=== PATIENT | male | born 1970 ===

== ENCOUNTER 2018-11-23 10:12 | Inpatient (IN) | payer OTHER ==
[~2018-11-23] VITALS: Ht 175.3 cm; Wt 177.7 kg
[2018-11-23] MEDS ORDERED: NPH,100V SC ×2 (10:41)
[2018-11-23] MEDS ORDERED: AMLO10TA8 PO (10:41)
[2018-11-23] MEDS ORDERED: INSU100C SQ-INSULIN (10:41)
[2018-11-23] MEDS ORDERED: LISI-167 PO (10:41)
[2018-11-23] MEDS ORDERED: CETI10TA18 PO (10:41)
[2018-11-23] MEDS ORDERED: GLIP10TA13 PO (10:41)
[2018-11-23] MEDS ORDERED: METF500T17 PO (10:41)
[2018-11-23] MEDS ORDERED: INDO75CA3 PO (10:41)
--- NOTE | 2018-11-23 10:46 | NUR ---
PT TO ED FOR SOB WITH EXERTION X FEW WEEKS AND LEFT POSTERIOR SHOULDER PAIN RAD TO LEFT ARM SINCE THIS AM. NO RELIEVING OR AGGRAVATING FACTORS. CONNECTED TO MONITORS. HTN 181/89M ALL OTHER VSS ON RA. AWAITING EDMD ASSESSMENT.
[2018-11-23] MEDS ORDERED: SODIUM CHLORIDE FLUSH 10ML SYR IVF ONE (11:00)
[2018-11-23] MEDS ORDERED: ASPIRIN 81 MG TABLET CHEW PO ONE (11:00)
[2018-11-23] MEDS ORDERED: NITROGLYCERIN SINGLE TAB 0.4 MG SL PRN (11:00)
[2018-11-23] MEDS ORDERED: ASPIRIN 81 MG TABLET CHEW ONE (11:03)
--- NOTE | 2018-11-23 11:32 | NUR ---
pt resting in room with family at bedside. vss. no needs at this time. iv established. labs drawn and sent. awaiting results.
[2018-11-23 11:50] LABS: BASOPHILS # (AUTO) 0.03 x10^3/uL (0-0.1); BASOPHILS % (AUTO) 0 % (0-1); EOSINOPHILS # (AUTO) 0.31 x10^3/uL (0-0.4); EOSINOPHILS % (AUTO) 3 % (1-7); LYMPHOCYTES # (AUTO) 1.82 x10^3/uL (1-3.4); LYMPHOCYTES % (AUTO) 20 % (22-44); MD NO; MEAN CORPUSCULAR HEMOGLOBIN 28.6 pg (27.5-34.5); MEAN CORPUSCULAR HGB CONC 33.3 g/dL (33.2-36.2); MEAN CORPUSCULAR VOLUME 85.9 fL (81-97); MEAN PLATELET VOLUME 6.9 fL (7.4-10.4); MONOCYTES # (AUTO) 0.69 x10^3/uL (0.2-0.8); MONOCYTES % (AUTO) 8 % (2-9); NEUTROPHILS % (AUTO) 69 % (42-75); PLATELET COUNT 506 x10^3/uL (130-400); RED BLOOD COUNT 4.08 x10^6/uL (4.38-5.82); RED CELL DISTRIBUTION WIDTH 14.8 % (9.4-14.8)
[2018-11-23 11:58] LABS: ALBUMIN 2.9 g/dL (3.4-5.0); ANION GAP 6 mmol/L (5-15); CALCIUM 8.9 mg/dL (8.5-10.1); CHLORIDE 105 mmol/L (98-107); CREATININE 2.01 mg/dL (0.7-1.3)
[2018-11-23 12:01] LABS: TROPONIN I < 0.015 ng/mL (0.000-0.045)
[2018-11-23] MEDS ORDERED: NITROGLYCERIN SINGLE TAB 0.4 MG SL ONE (12:07)
--- NOTE | 2018-11-23 13:20 | NUR ---
RN DAREN IS ASSISTING THE PRIMARY CARE RN WITH PT. CARE. PT. REMAINS MONITORED. VITALS TAKEN. PT. IS RESTING WITH THE HOB ELEVATED GREATER THAN 30 DEGREES. NO CONCERNS AT THIS TIME.
--- NOTE | 2018-11-23 13:47 | NUR ---
pt to vq scan at this time.
--- NOTE | 2018-11-23 14:25 | NUR ---
PT BACK FORM VQ SCAN. VSS. EDMD TO BS TO UPDATE ON POC. PLAN TO ADMIT.
[2018-11-23] MEDS ORDERED: METOPROLOL TARTRATE 50 MG TABLET PO ONE (15:00)
[2018-11-23] MEDS ORDERED: METOPROLOL TARTRATE 50 MG TABLET ONE (15:02)
[2018-11-23] MEDS ORDERED: DEXTROSE 50%, 50ML SYRINGE IVPush PRN (15:30)
[2018-11-23] MEDS ORDERED: LABETALOL 5MG/ML, 20ML IVPush PRN (15:30)
[2018-11-23] MEDS ORDERED: DEXTROSE 4 GM TAB.CHEW PO PRN (15:30)
[2018-11-23] MEDS ORDERED: ONDANSETRON 2MG/ML, 2ML IVPush PRN (15:30)
[2018-11-23] MEDS ORDERED: NITROGLYCERIN 0.4 MG/SPRAY SL PRN (15:30)
[2018-11-23] MEDS ORDERED: TRAZODONE 50MG TABLET PO PRN (15:30)
[2018-11-23] MEDS ORDERED: NITROGLYCERIN 0.4 MG BOTTLE (25 TABS) SL PRN (15:30)
[2018-11-23] MEDS ORDERED: GLUCAGON 1 MG IM PRN (15:30)
[2018-11-23] MEDS ORDERED: MORPHINE SULFATE 4 MG/ML, 1ML IVPush PRN (15:30)
[2018-11-23] MEDS ORDERED: ACETAMINOPHEN 325 MG TABLET PO PRN (15:30)
[2018-11-23 15:35] VITALS: BP 174/98
[2018-11-23 16:48] LABS: MICROSCOPIC AUTO
[2018-11-23 16:49] LABS: CULTURE INDICATED? NO
[2018-11-23 17:07] VITALS: BP 142/83
[2018-11-23] MEDS: HEPARIN 5,000 UNITS/ML, 1ML SQ SCH (17:08)
[2018-11-23] MEDS: INSULIN LISPRO 100 UNITS/ML, PEN SQ-INSULIN SCH ×2 (17:37→20:38)
[2018-11-23 18:37] LABS: TROPONIN I < 0.015 ng/mL (0.000-0.045)
[2018-11-23 19:03] VITALS: BP_SYST 155; BP_SYST 164; BP_DIAS 94; BP_DIAS 97
[2018-11-23] MEDS: SODIUM CHLORIDE FLUSH 10ML SYR IVF SCH (20:38)
[2018-11-23] MEDS: INSULIN NPH HUMAN 100 UNIT/ML, 3ML VIAL SQ-INSULIN SCH (21:00)
[2018-11-23 22:30] VITALS: BP 171/103
[2018-11-23] MEDS: hydrALAzine 20 MG/ML, 1ML IVPush PRN (22:35)
[2018-11-23 23:10] VITALS: BP 160/100
[2018-11-23 23:30] VITALS: BP 153/93
[2018-11-24 00:05] LABS: TROPONIN I < 0.015 ng/mL (0.000-0.045)
[2018-11-24 00:19] VITALS: BP 162/74
[2018-11-24 06:27] LABS: ANION GAP 5 mmol/L (5-15); CALCIUM 8.8 mg/dL (8.5-10.1); CHLORIDE 106 mmol/L (98-107); CREATININE 2.36 mg/dL (0.7-1.3)
[2018-11-24 06:31] LABS: BASOPHILS # (AUTO) 0.03 x10^3/uL (0-0.1); BASOPHILS % (AUTO) 0 % (0-1); EOSINOPHILS # (AUTO) 0.25 x10^3/uL (0-0.4); EOSINOPHILS % (AUTO) 2 % (1-7); LYMPHOCYTES # (AUTO) 2.02 x10^3/uL (1-3.4); LYMPHOCYTES % (AUTO) 17 % (22-44); MD NO; MEAN CORPUSCULAR HEMOGLOBIN 27.9 pg (27.5-34.5); MEAN CORPUSCULAR HGB CONC 32.4 g/dL (33.2-36.2); MEAN CORPUSCULAR VOLUME 86.3 fL (81-97); MEAN PLATELET VOLUME 7.1 fL (7.4-10.4); MONOCYTES # (AUTO) 0.79 x10^3/uL (0.2-0.8); MONOCYTES % (AUTO) 7 % (2-9); NEUTROPHILS # (AUTO) 8.61 x10^3/uL (1.8-6.8); NEUTROPHILS % (AUTO) 74 % (42-75); PLATELET COUNT 517 x10^3/uL (130-400); RED BLOOD COUNT 4.02 x10^6/uL (4.38-5.82); RED CELL DISTRIBUTION WIDTH 14.6 % (9.4-14.8)
[2018-11-24 06:38] LABS: % IRON SATURATION 13 % (20-55); IRON LEVEL 35 mcg/dL (65-175); TOTAL IRON BINDING CAPACITY 262 mcg/dL (250-450)
[2018-11-24 06:48] LABS: HEMOGLOBIN A1C 8.8 % (4.2-6.3)
[2018-11-24] MEDS: INSULIN LISPRO 100 UNITS/ML, PEN SQ-INSULIN SCH ×4 (07:00→20:37)
[2018-11-24 07:01] LABS: TROPONIN I < 0.015 ng/mL (0.000-0.045)
[2018-11-24 07:34] VITALS: BP 174/102
[2018-11-24] MEDS: CETIRIZINE 10 MG TABLET PO SCH (07:47)
[2018-11-24] MEDS: HEPARIN 5,000 UNITS/ML, 1ML SQ SCH ×3 (07:48→15:44)
[2018-11-24] MEDS: AMLODIPINE 10 MG TAB PO SCH (07:48)
[2018-11-24] MEDS: SODIUM CHLORIDE FLUSH 10ML SYR IVF SCH ×2 (07:49→20:32)
[2018-11-24] MEDS: INSULIN NPH HUMAN 100 UNIT/ML, 3ML VIAL SQ-INSULIN SCH ×2 (09:00→20:39)
[2018-11-24] MEDS ORDERED: AMLODIPINE 5 MG TABLET PO SCH (10:00)
[2018-11-24] MEDS ORDERED: REGADENOSON 0.4 MG/5 ML SYRINGE ONE (10:49)
[2018-11-24 13:20] VITALS: BP 193/117
[2018-11-24] MEDS: hydrALAzine 20 MG/ML, 1ML IVPush PRN (13:31)
[2018-11-24 14:00] VITALS: BP 150/82
[2018-11-24] MEDS ORDERED: ALLOPURINOL 100 MG TABLET PO SCH (15:30)
[2018-11-24] MEDS: ISOSORBIDE DINITRATE 10 MG TABLET PO SCH ×2 (15:44→20:33)
[2018-11-24] MEDS: GABAPENTIN 100 MG CAPSULE PO SCH ×2 (15:44→20:33)
[2018-11-24] MEDS: CARVEDILOL 6.25 MG TABLET PO SCH (19:04)
[2018-11-24 20:22] VITALS: BP 111/72
[2018-11-25] MEDS: HEPARIN 5,000 UNITS/ML, 1ML SQ SCH ×3 (00:22→20:36)
[2018-11-25 02:12] VITALS: BP 128/75
[2018-11-25 04:54] LABS: BASOPHILS # (AUTO) 0.02 x10^3/uL (0-0.1); BASOPHILS % (AUTO) 0 % (0-1); EOSINOPHILS # (AUTO) 0.24 x10^3/uL (0-0.4); EOSINOPHILS % (AUTO) 2 % (1-7); LYMPHOCYTES # (AUTO) 2.24 x10^3/uL (1-3.4); LYMPHOCYTES % (AUTO) 20 % (22-44); MD NO; MEAN CORPUSCULAR HEMOGLOBIN 27.7 pg (27.5-34.5); MEAN CORPUSCULAR HGB CONC 32.1 g/dL (33.2-36.2); MEAN CORPUSCULAR VOLUME 86.2 fL (81-97); MONOCYTES # (AUTO) 0.88 x10^3/uL (0.2-0.8); MONOCYTES % (AUTO) 8 % (2-9); NEUTROPHILS % (AUTO) 70 % (42-75); PLATELET COUNT 451 x10^3/uL (130-400); RED BLOOD COUNT 3.78 x10^6/uL (4.38-5.82); RED CELL DISTRIBUTION WIDTH 14.7 % (9.4-14.8)
[2018-11-25 05:06] LABS: ANION GAP 7 mmol/L (5-15); CALCIUM 8.5 mg/dL (8.5-10.1); CHLORIDE 105 mmol/L (98-107); CREATININE 2.73 mg/dL (0.7-1.3)
[2018-11-25] MEDS: CARVEDILOL 6.25 MG TABLET PO SCH ×2 (05:25→17:31)
[2018-11-25] MEDS: GABAPENTIN 100 MG CAPSULE PO SCH ×4 (05:25→20:34)
[2018-11-25] MEDS: INSULIN LISPRO 100 UNITS/ML, PEN SQ-INSULIN SCH ×4 (07:00→20:35)
[2018-11-25] MEDS ORDERED: prednisOLONE 15 MG/5 ML ORAL SOLN PO SCH (08:00)
[2018-11-25] MEDS: CYCLOBENZAPRINE 10 MG TABLET PO PRN ×2 (08:36→17:22)
[2018-11-25] MEDS ORDERED: ALLOPURINOL 100 MG TABLET PO SCH (09:00)
[2018-11-25 09:22] VITALS: BP 152/83
[2018-11-25] MEDS: ISOSORBIDE DINITRATE 10 MG TABLET PO SCH ×3 (10:58→20:34)
[2018-11-25] MEDS: AMLODIPINE 10 MG TAB PO SCH (10:58)
[2018-11-25] MEDS: SODIUM CHLORIDE FLUSH 10ML SYR IVF SCH ×2 (10:59→20:37)
[2018-11-25] MEDS: CETIRIZINE 10 MG TABLET PO SCH (11:20)
[2018-11-25] MEDS: INSULIN NPH HUMAN 100 UNIT/ML, 3ML VIAL SQ-INSULIN SCH ×2 (11:21→20:36)
[2018-11-25 17:19] VITALS: BP 158/88
[2018-11-25] MEDS ORDERED: INSULIN GLARGINE 100 UNITS/ML, PEN SQ-INSULIN SCH (21:00)
[2018-11-25 21:22] VITALS: BP 142/72
[2018-11-26 03:42] VITALS: BP 133/75
[2018-11-26] MEDS: CARVEDILOL 6.25 MG TABLET PO SCH ×2 (05:06→18:28)
[2018-11-26] MEDS: GABAPENTIN 100 MG CAPSULE PO SCH ×4 (05:06→20:59)
[2018-11-26] MEDS: HEPARIN 5,000 UNITS/ML, 1ML SQ SCH ×3 (05:06→20:58)
[2018-11-26 05:23] LABS: BASOPHILS % (AUTO) 1 % (0-1); EOSINOPHILS # (AUTO) 0.01 x10^3/uL (0-0.4); EOSINOPHILS % (AUTO) 0 % (1-7); LYMPHOCYTES # (AUTO) 1.99 x10^3/uL (1-3.4); LYMPHOCYTES % (AUTO) 13 % (22-44); MD NO; MEAN CORPUSCULAR HEMOGLOBIN 28.5 pg (27.5-34.5); MEAN CORPUSCULAR HGB CONC 33.2 g/dL (33.2-36.2); MEAN PLATELET VOLUME 6.8 fL (7.4-10.4); MONOCYTES # (AUTO) 1.32 x10^3/uL (0.2-0.8); MONOCYTES % (AUTO) 9 % (2-9); NEUTROPHILS # (AUTO) 12.02 x10^3/uL (1.8-6.8); NEUTROPHILS % (AUTO) 78 % (42-75); PLATELET COUNT 469 x10^3/uL (130-400); RED BLOOD COUNT 3.73 x10^6/uL (4.38-5.82); RED CELL DISTRIBUTION WIDTH 14.8 % (9.4-14.8)
[2018-11-26 05:31] LABS: CHLORIDE 104 mmol/L (98-107)
[2018-11-26 05:53] LABS: ALANINE AMINOTRANSFERASE 16 U/L (12-78); ALBUMIN 2.6 g/dL (3.4-5.0); ALKALINE PHOSPHATASE 67 U/L (45-117); ANION GAP 8 mmol/L (5-15); BILIRUBIN,TOTAL 0.2 mg/dL (0.2-1.0); CALCIUM 8.7 mg/dL (8.5-10.1); CREATININE 3.49 mg/dL (0.7-1.3)
[2018-11-26 07:10] VITALS: BP 146/82
[2018-11-26] MEDS: INSULIN NPH HUMAN 100 UNIT/ML, 3ML VIAL SQ-INSULIN SCH ×2 (08:21→21:01)
[2018-11-26] MEDS: ISOSORBIDE DINITRATE 10 MG TABLET PO SCH ×3 (08:22→20:59)
[2018-11-26] MEDS: AMLODIPINE 10 MG TAB PO SCH (08:22)
[2018-11-26] MEDS: CETIRIZINE 10 MG TABLET PO SCH (08:22)
[2018-11-26] MEDS: INSULIN LISPRO 100 UNITS/ML, PEN SQ-INSULIN SCH ×4 (08:23→21:00)
[2018-11-26] MEDS: SODIUM CHLORIDE 0.9% 1,000 ML IV SCH ×2 (08:23→17:06)
[2018-11-26] MEDS: SODIUM CHLORIDE FLUSH 10ML SYR IVF SCH ×2 (08:23→20:58)
[2018-11-26 13:45] VITALS: BP 131/80
[2018-11-26 18:30] VITALS: BP 132/86
[2018-11-26] MEDS ORDERED: INSULIN GLARGINE 100 UNITS/ML, PEN SQ-INSULIN SCH (21:00)
[2018-11-27 01:25] VITALS: BP 134/82
[2018-11-27] MEDS: SODIUM CHLORIDE 0.9% 1,000 ML IV SCH (03:57)
[2018-11-27 05:14] LABS: BASOPHILS # (AUTO) 0.07 x10^3/uL (0-0.1); BASOPHILS % (AUTO) 1 % (0-1); EOSINOPHILS # (AUTO) 0.04 x10^3/uL (0-0.4); EOSINOPHILS % (AUTO) 0 % (1-7); LYMPHOCYTES % (AUTO) 19 % (22-44); MD NO; MEAN CORPUSCULAR HEMOGLOBIN 28.2 pg (27.5-34.5); MEAN CORPUSCULAR HGB CONC 32.4 g/dL (33.2-36.2); MEAN PLATELET VOLUME 7.5 fL (7.4-10.4); MONOCYTES # (AUTO) 1.37 x10^3/uL (0.2-0.8); MONOCYTES % (AUTO) 9 % (2-9); NEUTROPHILS % (AUTO) 72 % (42-75); PLATELET COUNT 427 x10^3/uL (130-400); RED BLOOD COUNT 3.54 x10^6/uL (4.38-5.82); RED CELL DISTRIBUTION WIDTH 14.4 % (9.4-14.8)
[2018-11-27 05:15] LABS: CALCIUM 8.3 mg/dL (8.5-10.1); CHLORIDE 105 mmol/L (98-107)
[2018-11-27 05:22] LABS: ALANINE AMINOTRANSFERASE 15 U/L (12-78); ALBUMIN 2.4 g/dL (3.4-5.0); ALKALINE PHOSPHATASE 59 U/L (45-117); ANION GAP 6 mmol/L (5-15); BILIRUBIN,TOTAL 0.2 mg/dL (0.2-1.0); CREATININE 3.11 mg/dL (0.7-1.3); TOTAL PROTEIN 7.2 g/dL (6.4-8.2)
[2018-11-27] MEDS: GABAPENTIN 100 MG CAPSULE PO SCH ×2 (05:54→11:32)
[2018-11-27] MEDS: HEPARIN 5,000 UNITS/ML, 1ML SQ SCH ×2 (05:54→13:00)
[2018-11-27] MEDS: CARVEDILOL 6.25 MG TABLET PO SCH (05:54)
[2018-11-27] MEDS: INSULIN LISPRO 100 UNITS/ML, PEN SQ-INSULIN SCH ×2 (07:00→11:32)
[2018-11-27 08:19] VITALS: BP 164/74
[2018-11-27] MEDS: INSULIN NPH HUMAN 100 UNIT/ML, 3ML VIAL SQ-INSULIN SCH (08:20)
[2018-11-27] MEDS: AMLODIPINE 10 MG TAB PO SCH (08:22)
[2018-11-27] MEDS: ISOSORBIDE DINITRATE 10 MG TABLET PO SCH (08:22)
[2018-11-27] MEDS: CETIRIZINE 10 MG TABLET PO SCH (08:22)
[2018-11-27] MEDS: SODIUM CHLORIDE FLUSH 10ML SYR IVF SCH (08:24)
[2018-11-27] MEDS ORDERED: HYDR-3343 PO (11:13)
[2018-11-27] MEDS ORDERED: PRED20TA PO (11:13)
[2018-11-27] MEDS ORDERED: GABA-826 PO (11:13)
[2018-11-27] MEDS ORDERED: CARV6.2512 PO (11:13)
[2018-11-27] MEDS ORDERED: TRAM50TA2 PO (11:13)
== END 2018-11-27 12:50 | disposition home or self-care (01) | DRG 551 ==
LOC: ED 14:53 → INTOOBSV 14:54 → EDIP 14:54 → 5SO 15:27 → OBSVTOIN 11-24 12:02
PROVIDERS: ADMIT Hospitalist; ATTEND Hospitalist
DX: M48.02 Spinal stenosis, cervical region (principal); N17.0 Acute kidney failure with tubular necrosis; Z68.43 Body mass index [BMI] 50.0-59.9, adult; E11.22 Type 2 diabetes mellitus with diabetic chronic kidney disease; E11.65 Type 2 diabetes mellitus with hyperglycemia; E66.01 Morbid (severe) obesity due to excess calories; E78.5 Hyperlipidemia, unspecified; G47.33 Obstructive sleep apnea (adult) (pediatric); I12.9 Hypertensive chronic kidney disease with stage 1 through stage 4 chronic kidney disease, or unspecified chronic kidney disease; I16.0 Hypertensive urgency; J45.909 Unspecified asthma, uncomplicated; M50.11 Cervical disc disorder with radiculopathy, high cervical region; N18.3 Chronic kidney disease, stage 3 (moderate); Z79.4 Long term (current) use of insulin; Z83.3 Family history of diabetes mellitus; M1A.0310 Idiopathic chronic gout, right wrist, without tophus (tophi)
CPT/HCPCS: 36415; 71045; 72141; 76770; 78452; 78582; 80048; 80053; 81001; 82040; 82728; 82962; 83036; 83540; 83550; 83735; 84443; 84484; 84550; 85025; 85379; 93005; 93017; 99285; C8929; G0378; J1644; J1815; J2405; J2785; Q9957; A9502; A9540; A9558; C9898; J0360; J7030; J7512